=== PATIENT | male | born 1990 | race Caucasian/White ===

== ENCOUNTER 2018-02-24 03:43 | Emergency (ER) | payer OTHER ==
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
[2018-02-24 04:11] VITALS: BP 108/77; PULSE 71; TEMP 97.3; BMI 23.5
== END 2018-02-24 04:12 | disposition home or self-care (01) ==
LOC: JER 03:43
DX: Z77.21 Contact with and (suspected) exposure to potentially hazardous body fluids (principal); Y35.811A Legal intervention involving manhandling, law enforcement official injured, initial encounter; Y93.89 Activity, other specified; Y92.89 Other specified places as the place of occurrence of the external cause; Y99.0 Civilian activity done for income or pay
CPT/HCPCS: 99282-25

== ENCOUNTER 2018-05-04 16:56 | Emergency (ER) | payer OTHER, BC ==
[2018-05-04 17:00] VITALS: BP 126/69; PULSE 70; TEMP 98.5; BMI 25.0
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
== END 2018-05-04 17:32 | disposition home or self-care (01) ==
LOC: JERFT 16:56
DX: S39.012A Strain of muscle, fascia and tendon of lower back, initial encounter (principal); X58.XXXA Exposure to other specified factors, initial encounter; Y93.89 Activity, other specified; Y92.89 Other specified places as the place of occurrence of the external cause
CPT/HCPCS: 99281-25

== ENCOUNTER 2022-08-27 00:32 | Emergency (ER) | payer OTHER ==
[2022-08-27 00:41] VITALS: BP 125/77; PULSE 73; RESP 18; TEMP 97.6; BMI 26.6
[2022-08-27] MEDS ORDERED: TETRACAINE 0.5% OPHTH SOLN 2 ML BOTTLE ONE (00:44)
[2022-08-27] MEDS ORDERED: FLUORESCEIN NA 1 EA STRIP ONE (00:44)
[2022-08-27] MEDS ORDERED: ERYTHROMYCIN 0.5% OPHTHALMIC OINTMENT 3.5 GM TUBE ONE (01:32)
== END 2022-08-27 01:57 | disposition home or self-care (01) ==
LOC: JER 00:32
DX: H57.89 Other specified disorders of eye and adnexa (principal)
CPT/HCPCS: 99283-25

== ENCOUNTER 2024-03-09 17:30 | Emergency (ER) | payer OTHER ==
[2024-03-09 18:32] LABS: HEMATOCRIT 46.8 % (35.4-49); HEMOGLOBIN 15.6 G/dL (11.7-16.9); MCH 28.7 pg (25.7-33.7); MCHC 33.3 g/dl (32.0-35.9); MEAN CELL VOLUME 86.2 fl (80-96); MEAN PLT VOLUME 8.3 fl (7.5-11.1); PLATELET COUNT 236.1 10^3/uL (134-434); RBC 5.43 10^6/uL (4.00-5.60); RDW 13.9 % (11.9-15.9); WHITE BLOOD COUNT 9.1 10^3/uL (4.0-10.8)
[2024-03-09] MEDS: HIV POST EXPOSURE PROPHYLAXIS KIT PO ONE (18:47)
[2024-03-09 18:49] LABS: ALBUMIN 4.7 g/dl (3.4-5.0); ALK PHOS 52 U/L (45-117); ANION GAP 9 mmol/L (4-13); BILIRUBIN,TOTAL 1.3 mg/dl (0.2-1); CALCIUM 9.8 mg/dl (8.5-10.1); CHLORIDE 104 mmol/L (98-107); CHOLESTEROL 136 mg/dL (50-200); CO2 25 mmol/L (21-32); GLUCOSE,RANDOM 87 mg/dl (74-106); PHOSPHOROUS 3.7 (2.5-4.9); POTASSIUM 3.7 mmol/L (3.5-5.1); SGOT/AST 16 U/L (15-37); SGPT/ALT 14 U/L (7-52); SODIUM 138 mmol/L (136-145); TOT PROT 7.4 g/dl (6.4-8.2)
[2024-03-09 18:50] LABS: PLATELET ESTIMATE ADEQUATE
[2024-03-09 19:17] VITALS: BP 148/79; PULSE 81; RESP 18; TEMP 98.5; BMI 27.3
[2024-03-09 20:32] LABS: GAMMA GLUTAMYL TRANSPEPTIDASE 17 U/L (5-85)
[2024-03-09 20:53] LABS: HIV INTERPRETATION NEGATIVE (NEGATIVE)
== END 2024-03-09 19:21 | disposition home or self-care (01) ==
LOC: FER 17:30
DX: Z77.21 Contact with and (suspected) exposure to potentially hazardous body fluids (principal)
CPT/HCPCS: 36415; 80053; 82465; 82977; 84100; 85025; 86704; 86803; 87340; 87389; 87517; 99283-25